=== PATIENT | male | born 1945 | race Caucasian/White ===

== ENCOUNTER 2018-04-09 12:25 | Observation (INO) | payer MEDICARE, OTHER ==
--- NOTE | 2018-04-09 12:35 | Emergency Department Record ---
History of Present Illness - General Stated Complaint: CHEST PAIN Time Seen by Provider: 04/09/18 12:28 Source: Patient, Family Mode of Arrival: Ambulatory Limitations: No limitations - History of Present Illness Initial Comments: 72 yo male presents from Dr Dunlap's office due to recent episodes of chest pain and shortness of breath. He has felt short of breath for about a week. No leg swelling. He noticed the shortness of breath even at rest. He has had two episodes of chest discomfort in the last 24 hours. The first episode was a tightening in the mid lower chest while sitting fishing yesterday afternoon. It lasted about 20 minutes. The second episode occurred during the night, lasting about 20 minutes. His states he appeared pale and clammy at that time. No known CAD. 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 He does have HTN and elevated cholesterol. The pain does not radiate. No back, neck or shoulder discomfort. He had a cough about a week ago that resolved after about 2 days. MD Complaint: Chest pain -: Days(s) Onset: During rest Pain Location: Substernal Pain Radiation: None Quality: Tightness Consistency: Intermittent Improves With: Nothing Worsens With: Nothing Anginal Symptoms: Dyspnea Treatments Prior to Arrival: None - Related Data Home Medications Medication Instructions Recorded Confirmed Last Taken Aspirin 81 mg PO DAILY 04/09/18 04/09/18 1 Day Ago ~04/08/18 Allergies Allergy/AdvReac Type Severity Reaction Status Date / Time No Known Drug Intolerances Allergy Unknown HYPERSENSIT Verified 04/09/18 12:45 IVITY Review of Systems Constitutional: Denies: Chills, Fever, Weakness Eyes: Denies: Eye discharge Respiratory: Reports: Dyspnea. Denies: Cough Cardiovascular: Reports: Chest pain, Dyspnea on exertion, Palpitations. Denies : Edema, Syncope Endocrine: Reports: Fatigue Gastrointestinal: Denies: Abdominal pain, Diarrhea, Nausea, Vomiting Genitourinary: Denies: Dysuria, Frequency, Hematuria Musculoskeletal: Denies: Arthralgia, Back pain, Myalgia Skin: Denies: Bruising, Change in color, Rash Neurological: Denies: Headache, Numbness, Weakness Psychiatric: Denies: Anxiety Hematological/Lymphatic: Denies: Easy bleeding, Easy bruising, Swollen glands Physical Exam - General General Appearance: Alert, Oriented x3, Cooperative, No acute distress Limitations: No limitations - Head Head exam: Normal inspection - Eye Eye exam: Normal appearance. negative: Conjunctival injection, Scleral icterus - ENT ENT exam: Normal exam, Mucous membranes moist Ear exam: Normal external inspection Nasal Exam: Normal inspection Mouth exam: Normal external inspection - Neck Neck exam: Normal inspection - Respiratory Respiratory exam: Normal lung sounds bilaterally. negative: Respiratory distress - Cardiovascular Cardiovascular Exam: Bradycardia, Other (ectopy noted) Peripheral Pulses: 2+: Radial (R), Radial (L) - GI/Abdominal GI/Abdominal exam: Soft. negative: Tenderness - Rectal Rectal exam: Deferred - exam: Deferred - Extremities Extremities exam: Normal inspection, Full ROM, Normal capillary refill. negative: Calf tenderness, Pedal edema, Tenderness - Back Back exam: Reports: Normal inspection, Full ROM. Denies: CVA tenderness (R), CVA tenderness (L), Muscle spasm, Rash noted, Tenderness - Neurological Neurological exam: Alert, Normal gait, Oriented X3, Reflexes normal Course - Reevaluation(s) Reevaluation #1: EKG 1229 Sinus rhythm rate is 60, intervals normal, axis is L, ST no acute changes, PVC's noted Dr Dunlap's office staff did not send his office EKG. The office was called and is closed for lunch. 04/09/18 12:35 04/09/18 12:46 EKG was faxed from the office. Performed at 1045 sinus rhythm, rate 51, non specific t wave inversion V1-V2, PVC's 04/09/18 13:10 BP decreased to 186/95 down from presentation. BP is the office was 160/90. 04/09/18 13:12 K is 3.1. supplement ordered the patient remains pain free. He has not had any pain today. 04/09/18 13:13 The troponin is normal at 0.01 04/09/18 13:19 Given the CP with recent cough then increased BP CT of the chest recommended to the patient and ordered. 04/09/18 13:20 BNP is 1094 elevated 04/09/18 14:42 BP remains elevated 185/[address] report from radiologist 04/09/18 14:51 CT negative for PE or acute abnormality. Thyroid nodules and hepatic cysts noted. The patient and his informed for the need for follow up. 04/09/18 14:52 I recommend admission, consult with cardiology, echo, serial enzymes. 04/09/18 15:08 I KATIE Fletcher for Dr Dunlap. He requests Family Medicine to admit. I KATIE Lo of Family Medicine. He will be admitted serial enzymes, ECHO, cardiology consult Medical Decision Making - Lab Data Result diagrams: 04/09/18 12:32 04/09/18 12:32 Disposition Disposition: Admit Clinical Impression: Chest pain, Shortness of breath, Hypertension Disposition: Still a Patient at [facility] Decision to Admit: Admit from ER Decision to Admit Date: 04/09/18 Decision to Admit Time: 14:52 Condition: (2) Stable Time of Disposition: 14:55 Quality - Quality Measures Quality Measures: N/A - Blood Pressure Screening Does Patient Have Any of the Following: Active Dx of HTN Blood Pressure Classification: Hypertensive Reading Systolic Measurement: 156 Diastolic Measurement: 76 Screening for High Blood Pressure: Patient Exclusion, Hx of HTN [G9744]
[2018-04-09] MEDS ORDERED: ASPIRIN 81 MG CHEWABLE TABLET PO ONE (12:36)
[2018-04-09 12:39] LABS: BASO % 0.1 % (0-6); EOS % 0.4 % (0-6); GRAN % 70.8 % (47-80); HEMATOCRIT 47.4 % (42.0-52.0); LYMPH % 18.8 % (16-45); MEAN CELL VOLUME 84.9 fl (81-97); MEAN CORPUSCULAR HEMOGLOBIN 28.7 pg (27-33); MEAN CORPUSCULAR HGB CONC 33.8 g/dl (32-36); MEAN PLATELET VOLUME 11.1 fl (7.4-10.4); MONO % 9.9 % (0-9); PLATELET COUNT 294 K/uL (130-400); RED BLOOD COUNT 5.58 M/uL (4.40-5.70); RED CELL DISTRIBUTION WIDTH 14.1 % (11.5-14.5); WHITE BLOOD COUNT W/O DIFF 14.3 K/uL (4.2-12.2)
[2018-04-09 12:52] LABS: BLOOD UREA NITROGEN 17 mg/dL (8-23)
[2018-04-09 12:53] LABS: CREATININE 1.1 mg/dL (0.7-1.2); EST GLOMERULAR FILTRATION RATE > 60 mL/min; TOTAL PROTEIN 6.5 g/dL (6.6-8.7)
[2018-04-09 12:55] LABS: GLUCOSE,RANDOM 90 mg/dL (74-109)
[2018-04-09 12:58] LABS: ALB/GLOB RATIO 1.7 (1.1-1.8); ALBUMIN 4.1 g/dL (4.0-5.0); ALKALINE PHOSPHATASE 86 U/L (40-129); ALT/SGPT 19 U/L (<41); AST/SGOT 13 U/L (10.0-50.0); CREATINE PHOSPHOKINASE 56 U/L (39-308)
[2018-04-09 13:01] LABS: INR 1.1; PARTIAL THROMBOPLASTIN TIME 24.5 SECONDS (24.5-39.1); PROTHROMBIN TIME (PATIENT) 11.6 SECONDS (9.5-12.1)
[2018-04-09] MEDS ORDERED: POTASSIUM BICARB./CIT AC 25 MEQ EFF.TAB PO STA (13:11)
[2018-04-09] MEDS ORDERED: HYDRALAZINE 20MG/ML VIAL IV ONE (14:42)
[2018-04-09] MEDS ORDERED: ACETAMINOPHEN 500 MG TABLET PO PRN (17:30)
[2018-04-09] MEDS ORDERED: NITROGLYCERIN 0.4MG SL TABLET #25 BTL SL PRN (17:30)
--- NOTE | 2018-04-09 20:26 | Medical Records Consult ---
DATE OF CONSULTATION: 04/09/18 REFERRING PHYSICIAN: DR. ADARSH FRYE CONSULTING PHYSICIAN: KILEY MEEKS M.D. REASON FOR CONSULTATION: CHEST PAIN. HISTORY OF PRESENT ILLNESS: Mr. Jeffers is a delightful 72-year-old gentleman with history of hypertension, hyperlipidemia. He presented to the Emergency Department with complaints of chest discomfort. The patient actually had the chest discomfort yesterday as well as last night and then went to see his primary care physician and an EKG was performed in the office, which showed frequent PVCs. Because of the frequent PVCs as well as the chest pain, the patient was sent to the Emergency Department. He is currently chest pain free. The patient describes the chest pain as a dull aching pain, which gradually increased to about 9 out of 10 in severity and it lasted about 20 minutes yesterday evening while he [place]. The patient says that he then packed his stuff and drove home and while driving home, it went away. He then recalls that he woke up in the middle of the night and had another bout of chest pain that lasted 5 to 7 minutes and it subsided by itself as well. The patient denies any diaphoresis, palpitations, or shortness of breath. He denies any pedal edema, orthopnea, or paroxysmal nocturnal dyspnea. He doesn't have any history of coronary artery disease. ALLERGIES: NO KNOWN DRUG ALLERGIES. HOME MEDICATIONS: Lisinopril Hydrochlorothiazide 20/25 Omeprazole 40 mg daily Lovastatin 40 mg daily He recently was started on Prednisone as well as antibiotics because of a cough and shortness of breath, which was thought to be because of pneumonia and he is almost done with his antibiotic course. The patient denies any productive cough at this time. He denies any fevers or chills. SOCIAL HISTORY: The patient lives with his . He is a 30 pack-year history of smoking, which he quit more than 15 years ago. He denies any illicit drug use. REVIEW OF SYSTEMS: Denies any fevers or chills. Complains of chest pain, as explained in the HPI. No history of diabetes. No history of any other endocrine issues. No history of anxiety or depression. PHYSICAL EXAMINATION: GENERAL: Mr. Jeffers is a 72-year-old gentleman who is laying comfortably in bed , not in any apparent distress. He is alert and oriented x3. HEENT: On HEENT examination, he is normocephalic/atraumatic. Pupils are equal and reactive. Extraocular muscles are intact. NECK: Supple. He has no JVD. CVS: On CVS examination, he has normal S1 and S2. EXTREMITIES: No pedal edema. RESPIRATORY: Respiratory examination reveals that lungs are clear to auscultation bilaterally. ABDOMEN: Abdomen is soft and nontender. NEUROLOGIC: Neurologic examination is nonfocal. LABORATORY DATA: Shows a white count of 14.3. Hemoglobin 16. Hematocrit 47.4. Platelet count 294. Sodium 140. Potassium is low at 3.1. CO2 98. Chloride is 30.0. BUN 17. Creatinine 1.1. Blood glucose 99. EKG: His EKG shows him to have sinus rhythm with one PAC and two PVCs. No significant ST or T-wave changes are seen. ECHOCARDIOGRAM: He had an echocardiogram performed in the Emergency Department, which shows an ejection fraction of 55% and aortic valve sclerosis without any stenosis. The left atrium was mildly dilated. ASSESSMENT AND PLAN: 1. CHEST PAIN: The patient's chest pain is very atypical, as it has no relationship with exertion. His first set of cardiac enzymes is negative. The patient is currently chest pain free and hemodynamically stable with a blood pressure of 139/66, a temperature of 97.7 degrees Fahrenheit, and a pulse rate of 60 beats per minute with a respiratory rate of 18 per minute. Because of his risk factors of hypertension, hyperlipidemia and 30 pack-year history of smoking as well as his age and gender, I would recommend ruling him out with serial cardiac enzymes and if his cardiac biomarkers are within normal limits, we will consider doing a Treadmill Stress Cardiolite Test for evaluation of obstructive coronary artery disease as the etiology. 2. HISTORY OF HYPERTENSION: The patient's blood pressure is adequately controlled right now, however, no presentation to the Emergency Department, his blood pressure was very high. It probably was because of the anxiety associated with being in the hospital. 3. HISTORY OF HYPERLIPIDEMIA: The patient will be continued on Lovastatin and we will check his lipid profile to further him. 4. HISTORY OF PNEUMONIA: The patient is on an antibiotic and is also on steroid taper. I will defer to the Primary Team for management of that. Thank you very much. JOB NUMBER: [id number] [facility]ITAL[facility]
[2018-04-09] MEDS ORDERED: SIMVASTATIN 20 MG TABLET PO SCH (22:00)
[2018-04-09] MEDS ORDERED: MELOXICAM 7.5 MG TABLET PO SCH (22:00)
[2018-04-09] MEDS ORDERED: TRAMADOL HCL 50 MG TABLET PO SCH (22:00)
[2018-04-10 04:48] LABS: HEMATOCRIT 45.6 % (42.0-52.0); HEMOGLOBIN 15.3 gm/dl (14.0-18.0); MEAN CELL VOLUME 85.7 fl (81-97); MEAN CORPUSCULAR HEMOGLOBIN 28.8 pg (27-33); MEAN CORPUSCULAR HGB CONC 33.6 g/dl (32-36); MEAN PLATELET VOLUME 11.6 fl (7.4-10.4); PLATELET COUNT 250 K/uL (130-400); RED BLOOD COUNT 5.32 M/uL (4.40-5.70); RED CELL DISTRIBUTION WIDTH 14.3 % (11.5-14.5); WHITE BLOOD COUNT W/O DIFF 11.9 K/uL (4.2-12.2)
[2018-04-10 04:55] LABS: ALB/GLOB RATIO 1.8 (1.1-1.8); ALBUMIN 3.7 g/dL (4.0-5.0); ALKALINE PHOSPHATASE 76 U/L (40-129); ALT/SGPT 18 U/L (<41); AST/SGOT 11 U/L (10.0-50.0); BLOOD UREA NITROGEN 20 mg/dL (8-23); CREATININE 1.1 mg/dL (0.7-1.2); EST GLOMERULAR FILTRATION RATE > 60 mL/min; GLUCOSE,RANDOM 165 mg/dL (74-109); TOTAL PROTEIN 5.8 g/dL (6.6-8.7)
[2018-04-10] MEDS ORDERED: PANTOPRAZOLE SODIUM 40 MG TABLET PO SCH (07:00)
--- NOTE | 2018-04-10 07:24 | RADIOLOGY REPORT ---
EXAM: FRONTAL CHEST HISTORY: MID STERNAL CHEST PAIN, SHORTNESS OF BREATH. TECHNIQUE: AP views of the upper and lower chest were obtained. Comparison: Two view chest 04/01/18. FINDINGS: Stable heart size. No acute infiltrate identified. No pleural effusion or pneumothorax evident. IMPRESSION: ESSENTIALLY NEGATIVE FRONTAL CHEST WITH NO ACUTE INFILTRATE IDENTIFIED. JOB NUMBER: [id number] [facility]TD[facility]
--- NOTE | 2018-04-10 07:37 | CT ANGIOGRAM REPORT ---
EXAM: CTA OF THE CHEST WITH CONTRAST WITH POST PROCESSING HISTORY: CHEST PAIN, POSSIBLE PE. TECHNIQUE: CTA of the chest was performed following the intravenous administration of 74 ml of Omnipaque 350 as the IV contrast. Post processing on an independent workstation was performed with multiple 3D MIP series obtained. Comparison: No prior chest CT. Comparison is made with the single view chest x -ray from earlier today on 04/09/18. Report of the prior chest x-ray is not as yet available within PACS. FINDINGS: No definite PE identified. No thoracic aortic aneurysm or dissection is seen. No pleural or pericardial effusion evident. There are probably multiple nodules in the right lobe of the thyroid in particular with one likely measuring about 14 mm in size and one in the lower pole possibly larger at about 15 mm. This is somewhat poorly seen due to artifact related to the contrast injection in the venous anatomy of the lower neck and axilla, and recommend correlation with physical exam. Follow-up thyroid ultrasound may be useful. No definite hilar or mediastinal adenopathy is seen. No pneumothorax evident. There is probably some mild dependent atelectasis in the lungs. Some hypertrophic spurring in the thoracic spine. There is an approximately 5.2 cm low attenuation mass right lobe of the liver with a CT density of 7 consistent with a cyst. This was present on a much older abdomen CT of 09/26/06 as well, measuring about 3.3 cm at the time of that study approximately 11-12 years ago. Tiny apparent cysts far superiorly in the right lobe of the liver also present back in 2005 and appearing essentially unchanged. Another apparent small cyst in the caudate lobe today not clearly seen previously. This measures only about 7 mm in size with a CT density of 13 consistent with a cyst. IMPRESSION: 1. NO DEFINITE PE IDENTIFIED. 2. A FEW HEPATIC CYSTS, THE LARGEST ABOUT 5.2 CM IN SIZE IN THE RIGHT LOBE INFERIORLY. 3. THERE ARE PROBABLY A COUPLE RIGHT LOBE THYROID NODULES EACH LARGER THAN 1 CM IN SIZE. CORRELATE WITH PHYSICAL EXAM SUGGESTED AND FOLLOW-UP THYROID ULTRASOUND MAY BE USEFUL. J[facility]BER: [id number] [facility]
[2018-04-10] MEDS ORDERED: ANORO ELLIPTA INH SCH (10:00)
[2018-04-10] MEDS ORDERED: Non-Formulary MISC (Lisinopril/Hydrochlorothiazide [Lisinopril-Hctz 20-25 Mg Tab] 1 TAB) PO SCH (10:00)
[2018-04-10] MEDS ORDERED: PATIENT OWN MED: FLUOXETINE 20 MG PO SCH (10:00)
[2018-04-10] MEDS ORDERED: ASPIRIN 325 MG TAB ENTERIC-COATED PO SCH (10:00)
[2018-04-10] MEDS ORDERED: MELOXICAM 15 MG PO SCH (10:00)
[2018-04-10] MEDS ORDERED: LISINOPRIL 20 MG TABLET PO SCH (10:00)
[2018-04-10] MEDS ORDERED: HYDROCHLOROTHIAZIDE 25 MG TABLET PO SCH (10:00)
--- NOTE | 2018-04-10 10:07 | History & Physical ---
History of Present Illness - Date of Service Date of Service for History & Physical: 04/10/18 - History of Present Illness Admitting Diagnosis: Chest pain, shortness of breath History of Present Illness: Mr. Jeffers is a 72 yo male presented the the ED on 04/09/[address] Dunlap's office due to recent episodes of chest pain and shortness of breath. He reported feeling short of breath for about a week. No leg swelling. He noticed the shortness of breath even at rest. He has had two episodes of chest discomfort in the last 24 hours. The first episode was a tightening in the mid lower chest while sitting fishing yesterday afternoon. It lasted about 20 minutes. The second episode occurred during the night, lasting about 20 minutes. His states he appeared pale and clammy at that time. The pain does not radiate. No back, neck or shoulder discomfort. He had a cough about a week ago that resolved after about 2 days. No known CAD. 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 He does have history of COPD, bronchitis, HTN, TIA with no residual, and elevated cholesterol. In the ED, his vital signs were: BP 245/101, HR 62, RR 18, 97% O2 on room air and T 97.9F. His EKG showed sinus rhythm with a rate of 60, normal intervals, axis is left, no acute ST changes, PVC's noted. Compared to office EKG (from Dr. Dunlap's office earlier in the day) and was similar findings. Potassium was 3.1, pt. denied pain, troponin was normal. CTA was ordered and negative for PE or acute abnormality. Right thyroid nodules greater than 1cm were seen, as well has hepatic cysts. Pt. was admitted for observation for a cardiology consult and monitoring of cardiac enzymes. An echo was obtained and Dr. Franklin consulted. 04/10/18 0900: Pt. is resting in bed. He remains in sinus new on tele. He continues to deny any chest pain and shortness of breath. He did state that he was seen in Dr. Dunlap's office about 1 week ago and treated for a URI with doxy , prednisone, and anoro ellipta. He has 2 days remaining of his doxy and prednisone. BP this morning was 188/83 and 25mg hydralazine PO was administered , will recheck and continue to monitor. (BP may be elevated secondary to anoro and prednisone use). Troponins have remained unchanged, CBC and CMP unremarkable. TSH was checked because of thyroid nodules and was normal at 0.62. Pt. is scheduled for a cardiolyte stress test today and will plan to discharge home this evening if stress test is normal. PCP: Dr. Dunlap Cardiology: Dr. Franklin Travel Screening - Travel/Exposure Within Last 30 Days Have you traveled within the last 30 days?: No - Travel/Exposure Within Last Year Have you traveled outside the [place] in the last year?: No - Additonal Travel Details Have you been exposed to anyone with a communicable illness?: No - Travel Symptoms Symptom Screening: None Review of Systems Constitutional: Denies: Chills, Fever, Weakness Eyes: Denies: Eye discharge Respiratory: Reports: Dyspnea. Denies: Cough Cardiovascular: Reports: Dyspnea on exertion. Denies: Edema, Syncope Endocrine: Reports: Fatigue Gastrointestinal: Denies: Abdominal pain, Diarrhea, Nausea, Vomiting Genitourinary: Denies: Dysuria, Frequency, Hematuria Musculoskeletal: Denies: Arthralgia, Back pain, Myalgia Skin: Denies: Bruising, Change in color, Rash Neurological: Denies: Headache, Numbness, Weakness Psychiatric: Denies: Anxiety Hematological/Lymphatic: Denies: Easy bleeding, Easy bruising, Swollen glands Past Medical History - SOCIAL HISTORY Smoking Status: Former smoker Alcohol Use: None Drug Use: None - RESPIRATORY Hx Respiratory Disorders: Yes Hx Bronchitis: Yes Hx COPD: Yes - CARDIOVASCULAR Hx Abnormal EKG: Yes (bradycardia) Hx Hypertension: Yes Hx Irregular Heartbeat: Yes - NEURO Hx Neuro Disorders: Yes Hx Dizziness: Yes (positional) Hx TIA: Yes (no residual) - GI Hx GI Disorders: No - Hx Genitourinary Disorders: No - ENDOCRINE Hx Endocrine Disorders: No Hx Diabetes: No Hx Thyroid Disease: No - MUSCULOSKELETAL Hx Arthritis: Yes - PSYCH Hx Psych Problems: No - HEMATOLOGY/ONCOLOGY Hx Hematology/Oncology Disorders: No Family Medical History Any Significant Family History?: Yes Hx Diabetes: Brother/Sister H&P Meds/Allergies - Allergies Allergies: Allergies Allergy/AdvReac Type Severity Reaction Status Date / Time No Known Drug Intolerances Allergy Unknown HYPERSENSIT Verified 04/09/18 12:45 IVITY - Home Medications Home Medications Medication Instructions Recorded Confirmed Last Taken Aspirin 81 mg PO DAILY 04/09/18 04/09/18 1 Day Ago ~04/08/18 - Active Medications Active Medications: Current Medications Acetaminophen (Tylenol 500mg Tab) 1,000 mg PO Q6H PRN PRN Reason: PAIN/TEMP Aspirin (Ecotrin (Ec)) 325 mg PO DAILY [facility] Nitroglycerin (Nitrostat 0.4mg) 0.4 mg SL Q5MIN PRN PRN Reason: CHEST PAIN Patient Own Med: (Fluoxetine 20 Mg) 1 each PO DAILY [facility] Patient Own Med: (Anoro Ellipta) 1 each INH DAILY [facility] Patient Own Med: (Lovastatin 40 Mg) 1 each PO QHS [facility] Patient Own Med: (Meloxicam 15 Mg) 1 each PO DAILY [facility] Patient Own Med: (Omeprazole 20 Mg) 1 each PO DAILYAC [facility] Patient Own Med: (Lisinopril 20 Mg) 1 each PO DAILY [facility] Patient Own Med: Hydrochlorothiazide 25 Mg 1 each PO DAILY [facility] Physical Exam - Vital Signs Vital Signs: Vital Signs - Last 24 Hrs Temp Pulse Pulse Resp BP BP Pulse Ox 04/10/18 08:00 97.7 F 52 L 18 189/91 96 04/10/18 06:25 97 04/10/18 04:00 97.5 F L 50 L 20 197/84 99 04/09/18 21:50 56 L 97 04/09/18 20:00 98.6 F 40 L 18 108/56 100 04/09/18 17:08 97.7 F 60 18 139/66 97 04/09/18 16:41 57 L 16 156/76 97 04/09/18 16:32 58 L 16 156/76 04/09/18 16:00 61 16 168/93 04/09/18 15:30 67 16 139/84 04/09/18 15:02 55 L 16 173/79 04/09/18 13:00 56 L 16 186/95 04/09/18 12:40 38 L 18 177/85 04/09/18 12:36 57 L 200/96 04/09/18 12:35 97.9 F 62 18 245/101 97 - General General Appearance: Alert, Oriented x3, Cooperative, No acute distress Limitations: No limitations - Head Head exam: Normal inspection - Eye Eye exam: Normal appearance. negative: Conjunctival injection, Scleral icterus - ENT ENT exam: Normal exam, Mucous membranes moist Ear exam: Normal external inspection Nasal Exam: Normal inspection Mouth exam: Normal external inspection - Neck Neck exam: Normal inspection - Respiratory Respiratory exam: Normal lung sounds bilaterally. negative: Respiratory distress - Cardiovascular Cardiovascular Exam: Bradycardia, Other (ectopy noted) Peripheral Pulses: 2+: Radial (R), Radial (L) - GI/Abdominal GI/Abdominal exam: Soft. negative: Tenderness - Rectal Rectal exam: Deferred - exam: Deferred - Extremities Extremities exam: Normal inspection, Full ROM, Normal capillary refill. negative: Calf tenderness, Pedal edema, Tenderness - Back Back exam: Reports: Normal inspection, Full ROM. Denies: CVA tenderness (R), CVA tenderness (L), Muscle spasm, Rash noted, Tenderness - Neurological Neurological exam: Alert, Normal gait, Oriented X3, Reflexes normal Results - Labs Result Diagrams: 04/10/18 04:32 04/10/18 04:32 Labs Last 24 Hours: Laboratory Results - last 24 hr 04/09/18 04/09/18 04/09/18 12:32 12:32 12:32 WBC 14.3 H RBC 5.58 Hgb 16.0 Hct 47.4 MCV 84.9 MCH 28.7 MCHC 33.8 RDW 14.1 Plt Count 294 MPV 11.1 H Gran % 70.8 Neutrophils % Band Neutrophils % Lymphocytes % 18.8 Monocytes % 9.9 H Eosinophils % 0.4 Basophils % 0.1 Lymphocytes Monocytes Basophils Eosinophil Count PT 11.6 INR 1.1 APTT 24.5 Sodium 140 Potassium 3.1 L Chloride 98 Carbon Dioxide 30.0 H Anion Gap 12.0 BUN 17 Creatinine 1.1 Estimated GFR > 60 Random Glucose 90 Calcium 9.3 Magnesium Total Bilirubin 0.70 AST 13 ALT 19 Alkaline Phosphatase 86 Creatine Kinase 56 Troponin T < 0.010 NT-Pro-B Natriuret Pep Total Protein 6.5 L Albumin 4.1 Globulin 2.4 Albumin/Globulin Ratio 1.7 TSH 04/09/18 04/09/18 04/09/18 12:32 12:32 21:00 WBC RBC Hgb Hct MCV MCH MCHC RDW Plt Count MPV Gran % Neutrophils % Band Neutrophils % Lymphocytes % Monocytes % Eosinophils % Basophils % Lymphocytes Monocytes Basophils Eosinophil Count PT INR APTT Sodium Potassium Chloride Carbon Dioxide Anion Gap BUN Creatinine Estimated GFR Random Glucose Calcium Magnesium 1.9 Total Bilirubin AST ALT Alkaline Phosphatase Creatine Kinase Troponin T < 0.010 NT-Pro-B Natriuret Pep 1094.00 H Total Protein Albumin Globulin Albumin/Globulin Ratio TSH 04/10/18 04/10/18 04/10/18 04:32 04:32 06:00 WBC 11.9 RBC 5.32 Hgb 15.3 Hct 45.6 MCV 85.7 MCH 28.8 MCHC 33.6 RDW 14.3 Plt Count 250 MPV 11.6 H Gran % Neutrophils % 82.0 H Band Neutrophils % 1.0 Lymphocytes % Monocytes % Eosinophils % Not Reportable Basophils % Not Reportable Lymphocytes 10.0 L Monocytes 7.0 Basophils 0.0 Eosinophil Count 0.0 PT INR APTT Sodium 143 Cancelled Potassium 3.9 Cancelled Chloride 99 Cancelled Carbon Dioxide 28.0 Cancelled Anion Gap 16.0 Cancelled BUN 20 Cancelled Creatinine 1.1 Cancelled Estimated GFR > 60 Cancelled Random Glucose 165 H Cancelled Calcium 8.8 Cancelled Magnesium Total Bilirubin 0.40 Cancelled AST 11 Cancelled ALT 18 Cancelled Alkaline Phosphatase 76 Cancelled Creatine Kinase Troponin T < 0.010 NT-Pro-B Natriuret Pep Total Protein 5.8 L Cancelled Albumin 3.7 L Cancelled Globulin 2.1 Cancelled Albumin/Globulin Ratio 1.8 Cancelled TSH 04/10/18 08:27 WBC RBC Hgb Hct MCV MCH MCHC RDW Plt Count MPV Gran % Neutrophils % Band Neutrophils % Lymphocytes % Monocytes % Eosinophils % Basophils % Lymphocytes Monocytes Basophils Eosinophil Count PT INR APTT Sodium Potassium Chloride Carbon Dioxide Anion Gap BUN Creatinine Estimated GFR Random Glucose Calcium Magnesium Total Bilirubin AST ALT Alkaline Phosphatase Creatine Kinase Troponin T NT-Pro-B Natriuret Pep Total Protein Albumin Globulin Albumin/Globulin Ratio TSH 0.62 - Imaging and Cardiology Chest x-ray Status: Report reviewed CT scan - chest Status: Report reviewed VTE H&P Assessment - Risk for VTE Risk for VTE: Yes Risk Level: Moderate Risk Assessment Date: 04/10/18 Risk Assessment Time: 11:42 VTE Orders Placed or Will Be Placed: Yes Plan - Detailed Diagnosis and Plan (1) Chest pain Current Visit: Yes Status: Acute Base Code: R07.9 - CHEST PAIN, UNSPECIFIED Comment: 04/10/18: -Pt. presented to ED on 04/09/18 with c/o chest pain and sob for about 1 week -Chest xray and cta negative for acute process -EKG shows sinus rhythm with pvcs -Cardiology consulted (Dr. Franklin saw pt. on 04/09/18) and echo completed -troponins remain normal -Pt. has scheduled cardiolyte stress test today -Nitro 0.4mg for chest pain prn (pt. has denied chest pain/pressure since yesterday) (2) Hypertension Current Visit: Yes Status: Acute Base Code: I10 - ESSENTIAL (PRIMARY) HYPERTENSION Comment: 04/10/18: -BP elevated in ED and treated with 25mg Hydralazine, elevated again this morning and re-treated -Per pt.- he has been using anoro ellipta inhaler and prednisone for about 1 week and that is when his symptoms began -Will continue to monitor, continue tele, cardiolyte stress scheduled this afternoon (3) At risk for deep venous thrombosis Current Visit: Yes Status: Acute Base Code: Z91.89 - OTH PERSONAL RISK FACTORS, NOT ELSEWHERE CLASSIFIED Comment: 04/10/18: -Pt. at moderate risk for DVT, will order 40mg Lovenox SC if pt. not d/c'd home this evening (4) Full code status Current Visit: Yes Status: Acute Base Code: Z78.9 - OTHER SPECIFIED HEALTH STATUS Comment: 04/10/18: -Pt. is full code status
[2018-04-10] MEDS ORDERED: DOXYCYCLINE 100 MG PO SCH (11:00)
[2018-04-10] MEDS ORDERED: HYDRALAZINE HCL 25 MG TABLET PO ONE (11:02)
[2018-04-10] MEDS ORDERED: PATIENT OWN MED: ASPIRIN 81 MG PO SCH (11:15)
--- NOTE | 2018-04-10 19:04 | Discharge Summary ---
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 Established Physical Exam - Vital Signs Vital Signs: Vital Signs - Last 24 Hrs Temp Pulse Pulse Resp BP Pulse Ox 04/10/18 17:45 98.1 F 71 16 169/87 99 04/10/18 15:28 97.9 F 70 18 184/96 97 04/10/18 11:40 54 L 156/77 04/10/18 10:35 188/83 04/10/18 09:00 52 L 18 04/10/18 08:00 97.7 F 52 L 18 189/91 96 04/10/18 06:25 97 04/10/18 04:00 97.5 F L 50 L 20 197/84 99 04/09/18 21:50 56 L 97 04/09/18 20:00 98.6 F 40 L 18 108/56 100 - General General Appearance: Alert, Oriented x3, Cooperative, No acute distress Limitations: No limitations - Head Head exam: Normal inspection - Eye Eye exam: Normal appearance. negative: Conjunctival injection, Scleral icterus - ENT ENT exam: Normal exam, Mucous membranes moist Ear exam: Normal external inspection Nasal Exam: Normal inspection Mouth exam: Normal external inspection - Neck Neck exam: Normal inspection - Respiratory Respiratory exam: Normal lung sounds bilaterally. negative: Respiratory distress - Cardiovascular Cardiovascular Exam: Bradycardia, Other (ectopy noted) Peripheral Pulses: 2+: Radial (R), Radial (L) - GI/Abdominal GI/Abdominal exam: Soft. negative: Tenderness - Rectal Rectal exam: Deferred - exam: Deferred - Extremities Extremities exam: Normal inspection, Full ROM, Normal capillary refill. negative: Calf tenderness, Pedal edema, Tenderness - Back Back exam: Reports: Normal inspection, Full ROM. Denies: CVA tenderness (R), CVA tenderness (L), Muscle spasm, Rash noted, Tenderness - Neurological Neurological exam: Alert, Normal gait, Oriented X3, Reflexes normal Hospitalization - Hospitalization Admission Diagnosis: Chest pain, shortness of breath - Problem List/Discharge Diagnosis (1) Chest pain Status: Acute Base Code: R07.9 - CHEST PAIN, UNSPECIFIED Comment: 04/10/18: -Pt. presented to ED on 04/09/18 with c/o chest pain and sob for about 1 week -Chest xray and cta negative for acute process -EKG shows sinus rhythm with pvcs -Cardiology consulted (Dr. Franklin saw pt. on 04/09/18) and echo completed -troponins remain normal -Pt. has completed cardiolyte stress test- normal findings -Recommended f/u with cardiology OP. (2) Hypertension Status: Acute Base Code: I10 - ESSENTIAL (PRIMARY) HYPERTENSION Comment: : -BP elevated in ED and treated with 25mg Hydralazine, elevated again this morning and re-treated -Per pt.- he has been using anoro ellipta inhaler and prednisone for about 1 week and that is when his symptoms began -Stress test normal this afternoon. -Per Dr. Quintero- recommended increasing lisinopril to 40mg daily. (3) At risk for deep venous thrombosis Status: Acute Base Code: Z91.89 - OTH PERSONAL RISK FACTORS, NOT ELSEWHERE CLASSIFIED Comment: 04/10/18: -Pt. at moderate risk for DVT, will order 40mg Lovenox SC if pt. not d/c'd home this evening (4) Full code status Status: Acute Base Code: Z78.9 - OTHER SPECIFIED HEALTH STATUS Comment: 04/10: -Pt. is full code status - Hospitalization Course Disposition: Home, Self-Care Hospital Course: Mr. Jeffers is a 72 yo male presented the the ED on 04/09/[address] Dunlap's office due to recent episodes of chest pain and shortness of breath. He reported feeling short of breath for about a week. No leg swelling. He noticed the shortness of breath even at rest. He has had two episodes of chest discomfort in the last 24 hours. The first episode was a tightening in the mid lower chest while sitting fishing yesterday afternoon. It lasted about 20 minutes. The second episode occurred during the night, lasting about 20 minutes. His states he appeared pale and clammy at that time. The pain does not radiate. No back, neck or shoulder discomfort. He had a cough about a week ago that resolved after about 2 days. No known CAD. 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 He does have history of COPD, bronchitis, HTN, TIA with no residual, and elevated cholesterol. In the ED, his vital signs were: BP 245/101, HR 62, RR 18, 97% O2 on room air and T 97.9F. His EKG showed sinus rhythm with a rate of 60, normal intervals, axis is left, no acute ST changes, PVC's noted. Compared to office EKG (from Dr. Dunlap's office earlier in the day) and was similar findings. Potassium was 3.1, pt. denied pain, troponin was normal. CTA was ordered and negative for PE or acute abnormality. Right thyroid nodules greater than 1cm were seen, as well has hepatic cysts. Pt. was admitted for observation for a cardiology consult and monitoring of cardiac enzymes. An echo was obtained and Dr. Franklin consulted. 04/10/18 0900: Pt. is resting in bed. He remains in sinus new on tele. He continues to deny any chest pain and shortness of breath. He did state that he was seen in Dr. Dunlap's office about 1 week ago and treated for a URI with doxy , prednisone, and anoro ellipta. He has 2 days remaining of his doxy and prednisone. BP this morning was 188/83 and 25mg hydralazine PO was administered , will recheck and continue to monitor. (BP may be elevated secondary to anoro and prednisone use). Troponins have remained unchanged, CBC and CMP unremarkable. TSH was checked because of thyroid nodules and was normal at 0.62. Pt. is scheduled for a cardiolyte stress test today and will plan to discharge home this evening if stress test is normal. 04/10/18 1635: Cardiolyte stress normal per Dr. Quintero. Recommended increasing lisinopril to 40mg daily. Will plan to f/u with cardiology on outpatient basis. Will d/c home this evening. PCP: Dr. Dunlap Cardiology: Dr. Franklin Procedures: Imaging and X-Rays 04/09/18 12:28 CHEST 1 VIEW [RAD] Stat 04/09/18 13:17 CHEST CTA w contrast [CTA] Stat Cardiology Procedures 04/09/18 12:28 Application Trainer NOW EKG NOW 04/09/18 13:44 Echo W/CF & Cardiac Doppler NOW 04/09/18 17:30 Application Trainer .Continuous Cardiolite MPI w/exercise stre ONCE EKG QDX2@0600 Abnormal Labs: Abnormal Lab Results 04/09/18 04/09/18 04/09/18 Range/Units 12:32 12:32 12:32 WBC 14.3 H (4.2-12.2) K/uL MPV 11.1 H (7.4-10.4) fl Neutrophils % (47-80) % Monocytes % 9.9 H (0-9) % Lymphocytes (16-45) % Potassium 3.1 L (3.4-4.5) mmol/L Carbon Dioxide 30.0 H (22-29) mmol/L Random Glucose (74-109) mg/dL NT-Pro-B Natriuret Pep 1094.00 H (<125) pg/mL Total Protein 6.5 L (6.6-8.7) g/dL Albumin (4.0-5.0) g/dL 04/10/18 04/10/18 Range/Units 04:32 04:32 WBC (4.2-12.2) K/uL MPV 11.6 H (7.4-10.4) fl Neutrophils % 82.0 H (47-80) % Monocytes % (0-9) % Lymphocytes 10.0 L (16-45) % Potassium (3.4-4.5) mmol/L Carbon Dioxide (22-29) mmol/L Random Glucose 165 H (74-109) mg/dL NT-Pro-B Natriuret Pep (<125) pg/mL Total Protein 5.8 L (6.6-8.7) g/dL Albumin 3.7 L (4.0-5.0) g/dL Condition at Discharge: (2) Stable Discharge Diagnosis: Chest Pain VTE Discharge VTE Reason For No Overlap Therapy: Not Indicated Discharge Medications - Discharge Medications Home Medications: Ambulatory Orders Fluoxetine HCl [Prozac] 20 mg PO DAILY #90 09/29/16 [Last Taken 1 Day Ago ~04/08] Lisinopril/Hydrochlorothiazide [Lisinopril-Hctz 20-25 mg Tab] 1 tab PO QHS #90 09/29/16 [Last Taken 1 Day Ago ~04/08/18] Lovastatin 40 mg PO DAILY #90 09/29/16 [Last Taken 1 Day Ago ~04/08/18] Meloxicam 15 mg PO DAILY #90 09/29/16 [Last Taken 1 Day Ago ~04/08/18] Omeprazole 20 mg PO DAILY #180 09/29/16 [Last Taken 1 Day Ago ~04/08/18] Tramadol HCl 50 mg PO BID PRN #90 09/29/16 [Last Taken 1 Day Ago ~04/08/18] Aspirin 81 mg PO DAILY 04/09/18 [Last Taken 1 Day Ago ~04/08/18] Discharge Plan - Discharge Instructions Activity at Discharge: Increase Activity as Tolerated Diet at Discharge: Advance to Usual Diet Instructions: Lisinopril (By mouth), Chest Pain (DC), Heart Healthy Diet (DC), Seasoning Without Salt (DC), Cholesterol and Your Health (GEN), DASH Eating Plan (DC), Low-Sodium Diet (DC), Cardiac Stress Test (DC) Additional Instructions: 2 Activity: Up as tolerated 2 Diet: Low salt, low cholesterol diet 2 Consults: [Dr. Meeks or Dr. Quintero in 2-3 weeks, [facility] will call to schedule the appointment with you within the next week. If you have not heard anything from the care provider, please call [phone] on Sunday, April 15. ] 2 Follow Up: [With primary care in 7 days] 2 Dressing/Wound Care: (Type) (Change) 2 Additional: [Continue home medications Changes to medications increase lisinopril to 40mg daily, by taking an addition 20mg of lisinopril and follow up with Dr. Quintero or Dr. Meeks in 2-3 weeks Return to the emergency department within any new or worsening symptoms] Quality Measures - Quality Measures Quality Measures: Advance Directives, Documentation of Current Medications in Medical Record, Elder Maltreatment Screen and Follow-Up Plan, Screening for High Blood Pressure and F/U Documented - Current Medications Quality Measure: Measure #130: Documentation of Current Medications Documentation of Current Medications: <Current Medications Documented/Reviewed> [G8427] - Blood Pressure Screening Quality Measure: Screening for High Blood Pressure and Follow-Up Documented Does Patient Have Any of the Following: Active Dx of HTN Blood Pressure Classification: Hypertensive Reading Systolic Measurement: 156 Diastolic Measurement: 76 Screening for High Blood Pressure: Patient Exclusion, Hx of HTN [G9744] - Advance Directives Quality Measure: Measure #47: Care Plan Advance Directives Established: No Advance Directives Information Provided To Patient: No Advance Directives on File: No Advance Care Planning: <Care Plan/Decision Maker Documented; Discussed & Documented> [1123F] - Elder Abuse Suspicion Index Screening: Elder Abuse Suspicion Index Screening Rely on people for bathing, dressing, shopping, banking, etc: No Prevented from getting food, clothes, medication, etc: No Made to feel shamed or threatened by someone: No Forced to sign papers or use money against will: No Feel afraid, touched in ways not wanted or hurt physically: No Poor eye contact, withdrawn, malnourished, cuts or bruises: No Screening Result: Negative result EASI Reference Information: Kenyon FONG, Clyde C, Smiley D, Rani Howard.Development and validation of a tool to assist physicians identification of elder abuse: The Elder Abuse Suspicion Index (EASI ). Journal of Elder Abuse and Neglect, 2008; 20 (3): 276-300. - Elder Maltreatment Screen Quality Measures: Elder Maltreatment Screen and Follow-Up Plan Elder Maltreatment Screen: <Negative, No Follow-Up Plan Required> [G8759]
[2018-04-10] MEDS ORDERED: PATIENT OWN MED: LOVASTATIN 40 MG PO SCH (22:00)
--- NOTE | 2018-04-10 22:13 | Cardiolite Stress Test Report ---
DATE OF TEST: 04/10/2018 Mr. Jeffers is 72 years old, undergoing treadmill stress Cardiolite for chest pain. His resting ECG demonstrates sinus rhythm with normal axis and intervals. His resting pulse was 63 beats per minute and blood pressure 164/81. He exercised for 10 minutes, 4 seconds per the John Protocol without any cardiac complaints. His maximum heart rate was 149 beats per minute, which is equal to 102% of age-predicted maximal heart rate. Peak blood pressure was 229/85, which is a hypertensive response. Continuous ECG monitoring demonstrated no ST/T changes suggestive of ischemia or arrhythmia. Perfusion imaging demonstrated a normal scan. There was no evidence for ischemia. Left ventricular ejection fraction was 63%. FINAL IMPRESSION: 1. ASYMPTOMATIC MAXIMAL JOHN STRESS COMPLETING 11 METS WITH NO ECG EVIDENCE FOR ISCHEMIA OR ARRHYTHMIA. 2. HYPERTENSIVE BLOOD PRESSURE RESPONSE TO EXERCISE. 3. NORMAL PERFUSION IMAGING. 4. LEFT VENTRICULAR EJECTION FRACTION IS 63%. JOB NUMBER: [id number] MTDD
[2018-04-11] MEDS ORDERED: PATIENT OWN MED: OMEPRAZOLE 20 MG PO SCH (07:00)
[2018-04-11] MEDS ORDERED: PATIENT OWN MED: HYDROCHLOROTHIAZIDE 25 MG PO SCH (10:00)
[2018-04-11] MEDS ORDERED: PATIENT OWN MED: LISINOPRIL 20 MG PO SCH (10:00)
== END 2018-04-10 17:45 | disposition home or self-care (01) ==
LOC: ER 12:25 → MEDSURG 16:51
PROVIDERS: ADMIT Internal Medicine; ATTEND Internal Medicine
DX: R06.02 Shortness of breath (principal); R94.31 Abnormal electrocardiogram [ECG] [EKG]; J44.9 Chronic obstructive pulmonary disease, unspecified; E04.1 Nontoxic single thyroid nodule; K76.0 Fatty (change of) liver, not elsewhere classified; I10 Essential (primary) hypertension; E78.00 Pure hypercholesterolemia, unspecified; M19.90 Unspecified osteoarthritis, unspecified site
CPT/HCPCS: 82550; 83735; 85025; 85730; 85610; 80053 ×2; 84443; 84484 ×2; 85027; 83880; 71045; 71275; 93017; 78452; 94761; 94760; 93005 ×2; 93306; 93010; G0378 ×2; Q9967; A9500; 99220; 99285

== ENCOUNTER 2019-01-06 18:31 | Emergency (ER) | payer MEDICARE, OTHER ==
--- NOTE | 2019-01-06 19:49 | Emergency Department Record ---
History of Present Illness - General Chief Complaint: Hypertension Stated Complaint: ELEVATED BLOOD PRESSURE Time Seen by Provider: 01/06/19 18:59 Source: Patient Mode of Arrival: Ambulatory Limitations: No limitations - History of Present Illness Initial Comments: pt came in b/c his bp is high. he has recently been changed from lisinopril, hctz to verapamil. he has no symptoms, no cp, no hughes, Onset/Timin -: Minutes(s) Associated Symptoms: Denies other symptoms - Sirisha Coma Scale Eye Response: (4) Open spontaneously Motor Response: (6) Obeys commands Verbal Response: (5) Oriented [place] Total: 15 - Related Data Home Medications Medication Instructions Recorded Confirmed Last Taken Hydrochlorothiazide [Hctz 12.5MG] 12.5 mg PO DAILY 01/06/19 01/06/19 01/06/19 Umeclidinium Brm/Vilanterol Tr 1 each IH 01/06/19 01/06/19 [Anoro Ellipta 62.5-25 Mcg INH] Verapamil HCl [Verapamil ER] 120 mg PO QHS 01/06/19 01/06/19 01/05/19 Allergies Allergy/AdvReac Type Severity Reaction Status Date / Time No Known Drug Allergies Allergy Verified 01/06/19 18:44 Travel Screening - Travel/Exposure Within Last 30 Days Have you traveled within the last 30 days?: No - Travel/Exposure Within Last Year Have you traveled outside the [place] in the last year?: No - Additonal Travel Details Have you been exposed to anyone with a communicable illness?: No - Travel Symptoms Symptom Screening: None Review of Systems Reviewed: No additional complaints except as noted below Constitutional: Reports: As per HPI. Denies: Chills, Fever, Malaise, Night sweats, Weakness, Weight change Eyes: Reports: As per HPI. Denies: Eye discharge, Eye pain, Photophobia, Vision change ENT: Reports: As per HPI. Denies: Congestion, Dental pain, Ear pain, Epistaxis , Hearing loss, Throat pain Respiratory: Reports: As per HPI. Denies: Cough, Dyspnea, Hemoptysis, Stridor, Wheezes Cardiovascular: Reports: As per HPI. Denies: Arrhythmia, Chest pain, Dyspnea on exertion, Edema, Murmurs, Orthopnea, Palpitations, Paroxysmal nocturnal dyspnea, Rheumatic Fever, Syncope Endocrine: Reports: As per HPI. Denies: Fatigue, Heat or cold intolerance, Polydipsia, Polyuria Gastrointestinal: Reports: As per HPI. Denies: Abdominal pain, Constipation, Diarrhea, Hematemesis, Hematochezia, Melena, Nausea, Vomiting Genitourinary: Reports: As per HPI. Denies: Dysuria, Frequency, Hematuria, Incontinence, Retention, Testicular pain, Testicular mass, Urgency Musculoskeletal: Reports: As per HPI. Denies: Arthralgia, Back pain, Gout, Joint swelling, Myalgia, Neck pain Skin: Reports: As per HPI. Denies: Bruising, Change in color, Change in hair/ nails, Lesions, Pruritus, Rash Neurological: Reports: As per HPI. Denies: Abnormal gait, Confusion, Headache, Numbness, Paresthesias, Seizure, Tingling, Tremors, Vertigo, Weakness Psychiatric: Reports: As per HPI. Denies: Anxiety, Auditory hallucinations, Depression, Homicidal thoughts, Suicidal thoughts, Visual hallucinations Hematological/Lymphatic: Reports: As per HPI. Denies: Anemia, Blood Clots, Easy bleeding, Easy bruising, Swollen glands Past Medical History - SOCIAL HISTORY Smoking Status: Former smoker Alcohol Use: None Drug Use: None - RESPIRATORY Hx Respiratory Disorders: Yes Hx Bronchitis: Yes Hx COPD: Yes - CARDIOVASCULAR Hx Abnormal EKG: Yes (bradycardia) Hx Hypertension: Yes Hx Irregular Heartbeat: Yes - NEURO Hx Neuro Disorders: Yes Hx Dizziness: Yes (positional) Hx TIA: Yes (no residual) - GI Hx GI Disorders: No - Hx Genitourinary Disorders: No - ENDOCRINE Hx Endocrine Disorders: No Hx Diabetes: No Hx Thyroid Disease: No - MUSCULOSKELETAL Hx Arthritis: Yes - PSYCH Hx Psych Problems: No - HEMATOLOGY/ONCOLOGY Hx Hematology/Oncology Disorders: No Family Medical History Any Significant Family History?: No Hx Diabetes: Brother/Sister Physical Exam - General General Appearance: Alert, Oriented x3, Cooperative, Mild distress - Head Head exam: Normal inspection - Eye Eye exam: Normal appearance, PERRL, EOMI Pupils: Normal accommodation - ENT ENT exam: Normal exam, Mucous membranes moist, Normal external ear exam, Normal orophraynx Ear exam: Normal external inspection. negative: External canal tenderness Nasal Exam: Normal inspection. negative: Discharge, Sinus tenderness Mouth exam: Normal external inspection, Tongue normal Teeth exam: Normal inspection. negative: Dental caries Throat exam: Normal inspection. negative: Tonsillar erythema, Tonsillar exudate - Neck Neck exam: Normal inspection, Full ROM. negative: Tenderness - Respiratory Respiratory exam: Normal lung sounds bilaterally. negative: Respiratory distress - Cardiovascular Cardiovascular Exam: Regular rate, Normal rhythm, Normal heart sounds - GI/Abdominal GI/Abdominal exam: Soft, Normal bowel sounds. negative: Tenderness - Rectal Rectal exam: Deferred - exam: Deferred - Extremities Extremities exam: Normal inspection, Full ROM, Normal capillary refill. negative: Tenderness - Back Back exam: Reports: Normal inspection, Full ROM. Denies: Muscle spasm, Rash noted, Tenderness - Neurological Neurological exam: Alert, CN II-XII intact, Normal gait, Oriented X3 - Psychiatric Psychiatric exam: Normal affect, Normal mood - Skin Skin exam: Dry, Intact, Normal color, Warm Course Vital Signs 01/06/19 01/06/19 01/06/19 18:33 18:40 18:52 Temperature 98.2 F Pulse Rate 72 Pulse Rate [ 71 66 Pulse Ox Probe] Respiratory 20 Rate Blood Pressure 197/142 Blood Pressure 209/104 185/94 [Left Arm] Pulse Ox 96 01/06/19 01/06/19 19:00 19:29 Temperature Pulse Rate Pulse Rate [ Pulse Ox Probe] Respiratory Rate Blood Pressure Blood Pressure 184/85 169/85 [Left Arm] Pulse Ox - Reevaluation(s) Reevaluation #1: 01/06/19 19:48 bp is 169/82, much better with just resting Disposition Disposition: Discharge Clinical Impression: Hypertension Qualifiers: Hypertension type: essential hypertension Qualified Code(s): I10 - Essential ( primary) hypertension Disposition: Home, Self-Care Condition: (1) Good Instructions: Hypertension (ED) Additional Instructions: follow up with family doctor tomorrow. return sooner if worse. Quality - Quality Measures Quality Measures: N/A - Blood Pressure Screening Does Patient Have Any of the Following: Active Dx of HTN Blood Pressure Classification: Hypertensive Reading Systolic Measurement: 197 Diastolic Measurement: 142 Screening for High Blood Pressure: Patient Exclusion, Hx of HTN [G9744]
== END 2019-01-06 19:57 | disposition home or self-care (01) ==
LOC: ER 18:31
DX: I10 Essential (primary) hypertension (principal); Z87.891 Personal history of nicotine dependence
CPT/HCPCS: 99282

== ENCOUNTER 2019-08-24 16:34 | Emergency (ER) | payer MEDICARE, OTHER ==
--- NOTE | 2019-08-24 17:01 | Emergency Department Record ---
History of Present Illness - General Chief complaint: Male Urogenital Problem Stated complaint: NECK PAIN/SURGERY DONE THIS MONTH Time Seen by Provider: 08/24/19 16:56 Source: Patient - History of Present Illness Initial comments: patient had swelling of the penis tip and he has redness and the swelling went down when he came into the ED and he is not circumscised and the foreskin must have been retracted partially and it went down spontaneously and he now fells better. testicle not painful on palpation. anguiano is draining and bladder scan showed 16 ml . Neck surgery 3 weeks ago and that pain is gradually getting better. - Related Data Allergies Allergy/AdvReac Type Severity Reaction Status Date / Time No Known Drug Allergies Allergy Verified 01/06/19 18:44 Review of Systems Reviewed: No additional complaints except as noted below Constitutional: Reports: As per HPI. Denies: Chills, Fever, Malaise, Night sweats, Weakness, Weight change Eyes: Reports: As per HPI. Denies: Eye discharge, Eye pain, Photophobia, Vision change ENT: Reports: As per HPI. Denies: Congestion, Dental pain, Ear pain, Epistaxis, Hearing loss, Throat pain Respiratory: Reports: As per HPI. Denies: Cough, Dyspnea, Hemoptysis, Stridor, Wheezes Cardiovascular: Reports: As per HPI. Denies: Arrhythmia, Chest pain, Dyspnea on exertion, Edema, Murmurs, Orthopnea, Palpitations, Paroxysmal nocturnal dyspnea, Rheumatic Fever, Syncope Endocrine: Reports: As per HPI. Denies: Fatigue, Heat or cold intolerance, Polydipsia, Polyuria Gastrointestinal: Reports: As per HPI. Denies: Abdominal pain, Constipation, Diarrhea, Hematemesis, Hematochezia, Melena, Nausea, Vomiting Genitourinary: Reports: As per HPI. Denies: Dysuria, Frequency, Hematuria, Incontinence, Retention, Testicular pain, Testicular mass, Urgency Musculoskeletal: Reports: As per HPI. Denies: Arthralgia, Back pain, Gout, Joint swelling, Myalgia, Neck pain Skin: Reports: As per HPI. Denies: Bruising, Change in color, Change in hair/nails, Lesions, Pruritus, Rash Neurological: Reports: As per HPI. Denies: Abnormal gait, Confusion, Headache, Numbness, Paresthesias, Seizure, Tingling, Tremors, Vertigo, Weakness Psychiatric: Reports: As per HPI. Denies: Anxiety, Auditory hallucinations, Depression, Homicidal thoughts, Suicidal thoughts, Visual hallucinations Hematological/Lymphatic: Reports: As per HPI. Denies: Anemia, Blood Clots, Easy bleeding, Easy bruising, Swollen glands Past Medical History - SOCIAL HISTORY Smoking Status: Former smoker Drug Use: None - RESPIRATORY Hx Respiratory Disorders: Yes Hx Bronchitis: Yes Hx COPD: Yes - CARDIOVASCULAR Hx Abnormal EKG: Yes (bradycardia) Hx Hypertension: Yes Hx Irregular Heartbeat: Yes - NEURO Hx Neuro Disorders: Yes Hx Dizziness: Yes (positional) Hx TIA: Yes (no residual) - GI Hx GI Disorders: No - Hx Genitourinary Disorders: No - ENDOCRINE Hx Endocrine Disorders: No Hx Diabetes: No Hx Thyroid Disease: No - MUSCULOSKELETAL Hx Arthritis: Yes - PSYCH Hx Psych Problems: No - HEMATOLOGY/ONCOLOGY Hx Hematology/Oncology Disorders: No Family Medical History Hx Diabetes: Brother/Sister Physical Exam - General General Appearance: Alert, Oriented x3, Cooperative, Mild distress - Head Head exam: Normal inspection - Eye Eye exam: Normal appearance, PERRL Pupils: Normal accommodation - ENT ENT exam: Normal exam, Mucous membranes moist, Normal external ear exam, Normal orophraynx, TM's normal bilaterally Ear exam: Normal external inspection. negative: External canal tenderness Nasal Exam: Normal inspection. negative: Discharge, Sinus tenderness Mouth exam: Normal external inspection, Tongue normal Teeth exam: Normal inspection. negative: Dental caries Throat exam: Normal inspection. negative: Tonsillar erythema, Tonsillar exudate - Neck Neck exam: Normal inspection, Full ROM. negative: Tenderness - Respiratory Respiratory exam: Normal lung sounds bilaterally. negative: Respiratory distress - Cardiovascular Cardiovascular Exam: Regular rate, Normal rhythm, Normal heart sounds - GI/Abdominal GI/Abdominal exam: Soft, Normal bowel sounds. negative: Tenderness - Rectal Rectal exam: Deferred - exam: Deferred - Extremities Extremities exam: Normal inspection, Full ROM, Normal capillary refill. negative: Tenderness - Back Back exam: Reports: Normal inspection, Full ROM. Denies: Muscle spasm, Rash noted, Tenderness - Neurological Neurological exam: Alert, Normal gait, Oriented X3, Reflexes normal - Psychiatric Psychiatric exam: Normal affect, Normal mood - Skin Skin exam: Dry, Intact, Normal color, Warm Disposition Clinical Impression: Penis pain Disposition: Home, Self-Care Condition: (1) Good Instructions: Foreskin Care (ED) Additional Instructions: follow up with urology and neurosurg as scheduled. His urology appointment is tomorrow triple antibiotic ointment around the tip three times a day. Time of Disposition: 17:04 Quality - Quality Measures Quality Measures: N/A - Blood Pressure Screening Does Patient Have Any of the Following: No Systolic Measurement: ~ Screening for High Blood Pressure: Patient Exclusion, Hx of HTN [G9744]
== END 2019-08-24 17:23 | disposition home or self-care (01) ==
LOC: ER 16:34
DX: N48.89 Other specified disorders of penis (principal); M54.2 Cervicalgia; I10 Essential (primary) hypertension; J44.9 Chronic obstructive pulmonary disease, unspecified; Z87.891 Personal history of nicotine dependence; Z98.890 Other specified postprocedural states
CPT/HCPCS: 99282

== ENCOUNTER 2019-12-29 11:46 | Emergency (ER) | payer MEDICARE, OTHER ==
[2019-12-29] MEDS ORDERED: HYDROMORPHONE HCL 1 MG/ML SYRINGE IM ONE ×2 (12:16→13:18)
[2019-12-29] MEDS ORDERED: ONDANSETRON 4 MG ODT TABLET SL ONE (12:17)
--- NOTE | 2019-12-29 12:25 | Emergency Department Record ---
History of Present Illness - General Chief Complaint: Back Pain/Injury Stated Complaint: ABD PAIN Time Seen by Provider: 12/29/19 12:01 Source: Patient Mode of Arrival: Ambulatory Limitations: No limitations - History of Present Illness Initial Comments: The patient is here due to worsening of his chronic back pain over the last hour. The patient was standing answering the phone and twisted and felt severe pain in the R lower back over the SI area which caused his R leg to go numb and give out. He then fell to the floor and the pain continued in the R lower back area. The patient has a LONG hx of chronic pain and did have back injections by Dr. Hoff last week and is scheduled for a Rhizotomy in 3 days. He denies any AP, urinary incontinence or vomiting. The patient did have plain xrays done a month ago that did not demonstrate any significant issues. MD Complaint: Back pain Onset/Timin -: Minutes(s) Similar Symptoms Previously: Yes Place: Home Severity: Moderate Severity scale (1-10): 10 Quality: Aching Consistency: Constant Context: Fall, Turning/twisting - Related Data Home Medications Medication Instructions Recorded Confirmed Last Taken Amlodipine Besylate [Norvasc] 10 mg PO DAILY 12/29/19 12/29/19 1 Day Ago ~12/28/19 Atenolol [Tenormin] 50 mg PO DAILY 12/29/19 12/29/19 1 Day Ago ~12/28/19 Losartan Potassium [Cozaar] 100 mg PO DAILY 12/29/19 12/29/19 1 Day Ago ~12/28/19 Tramadol HCl [Ultram] 50 mg PO Q6H 12/29/19 12/29/19 12/29/19 Allergies Allergy/AdvReac Type Severity Reaction Status Date / Time No Known Drug Allergies Allergy Verified 12/29/19 11:58 Travel/Exposure Screening - Travel/Exposure Within Last 30 Days Have you traveled within the last 30 days?: No - Travel/Exposure Within Last Year Have you traveled outside the [place] in the last year?: No - Additonal Travel/Exposure Details Have you been exposed to anyone with a communicable illness?: No - Travel Symptoms Symptom Screening: None Review of Systems Constitutional: Denies: Chills, Fever Eyes: Denies: Eye discharge ENT: Denies: Congestion Respiratory: Denies: Cough, Dyspnea Past Medical History - SOCIAL HISTORY Smoking Status: Former smoker Alcohol Use: None Drug Use: None - RESPIRATORY Hx Respiratory Disorders: Yes Hx Bronchitis: Yes Hx COPD: Yes - CARDIOVASCULAR Hx Abnormal EKG: Yes (bradycardia) Hx Hypertension: Yes Hx Irregular Heartbeat: Yes - NEURO Hx Neuro Disorders: Yes Hx Dizziness: Yes (positional) Hx TIA: Yes (no residual) - GI Hx GI Disorders: No - Hx Genitourinary Disorders: No - ENDOCRINE Hx Endocrine Disorders: No Hx Diabetes: No Hx Thyroid Disease: No - MUSCULOSKELETAL Hx Arthritis: Yes - PSYCH Hx Psych Problems: No - HEMATOLOGY/ONCOLOGY Hx Hematology/Oncology Disorders: No Family Medical History Any Significant Family History?: Yes Hx Diabetes: Brother/Sister Physical Exam - General General Appearance: Alert, Oriented x3, Cooperative, Moderate distress - Head Head exam: Atraumatic, Normocephalic - Eye Eye exam: Normal appearance, PERRL - ENT Throat exam: Normal inspection. negative: Tonsillar erythema, Tonsillar exudate - Neck Neck exam: Normal inspection, Full ROM. negative: Tenderness - Respiratory Respiratory exam: Normal lung sounds bilaterally. negative: Respiratory distress - Cardiovascular Cardiovascular Exam: Regular rate, Normal rhythm, Normal heart sounds - GI/Abdominal GI/Abdominal exam: Soft, Normal bowel sounds. negative: Tenderness - Rectal Rectal exam: Normal rectal tone - Extremities Extremities exam: Normal inspection, Other (Pos SLR R at 30 degrees.). negative: Full ROM - Back Back exam: Reports: Normal inspection, Paraspinal tenderness (There is very reproducible tenderness over the R SI joint area which does reproduce his pain.) . Denies: Vertebral tenderness - Neurological Neurological exam: Abnormal gait, Alert, Oriented X3, Reflexes normal (The achilles and patella are 2+ and equal bilaterally.). negative: Altered, Motor sensory deficit (The patient does have normal sensation to the R leg but does have intermittent radicular symptoms travelling from the R lower back to down the side of the R leg. I am unable to test his strength due to severe pain.), Normal gait - Skin Skin exam: negative: Rash Course Vital Signs 12/29/19 11:50 Temperature 97.5 F L Pulse Rate 77 Respiratory 20 Rate Blood Pressure 180/98 Pulse Ox 96 - Reevaluation(s) Reevaluation #1: The patient is still in quite a lot of pain after the 2 mg of Dilaudid. I did discuss the issues with the patient and do feel he will need a Lumbar MRI due to the amount of pain he is in to evaluated for any urgent neurosurgical causes of the pain. Due to not having an MRI here the patient would like to go to [facility] where his Neurosurgeon is located. I then did discuss the case with Dr. Meyers in the ER and she does accept the patient in transfer. The patient will be transferred ER to ER for further evaluation. 12/29/19 13:57 Disposition Disposition: Discharge Clinical Impression: Lumbar radiculopathy Disposition: Acute Care Hospital Transfer Transfer To: [facility] Reason For Transfer: MRI Accepting Physician: Mira Time Discussed w/Accepting Physician: 13:54 Condition: (2) Stable Forms: Patient Portal Access Time of Disposition: 13:54 Quality - Quality Measures Quality Measures: N/A - Blood Pressure Screening View Details: Yes Does Patient Have Any of the Following: Active Dx of HTN Blood Pressure Classification: Hypertensive Reading Systolic Measurement: 180 Diastolic Measurement: 98 Screening for High Blood Pressure: Patient Exclusion, Hx of HTN [G9744]
== END 2019-12-29 14:31 | disposition short-term general hospital (02) ==
LOC: ER 11:46
DX: S39.92XA Unspecified injury of lower back, initial encounter (principal); M54.16 Radiculopathy, lumbar region; I10 Essential (primary) hypertension; J44.9 Chronic obstructive pulmonary disease, unspecified; Z87.891 Personal history of nicotine dependence; W01.0XXA Fall on same level from slipping, tripping and stumbling without subsequent striking against object, initial encounter; Y92.009 Unspecified place in unspecified non-institutional (private) residence as the place of occurrence of the external cause
CPT/HCPCS: 99285; 96372; 99283; J1170